=== PATIENT | female | born 2000 | race Hispanic/Latino ===

== ENCOUNTER 2020-08-19 17:44 | Emergency (ER) | payer MEDICAID ==
[2020-08-19 18:53] VITALS: TEMP 97.8
[2020-08-19] MEDS ORDERED: IPRATROPIUM/ALBUTEROL 3 ML VIAL NEB ONE (19:43)
--- NOTE | 2020-08-19 20:07 | RAD ---
EXAM DESCRIPTION: XR Chest, 2 Views CLINICAL HISTORY: cough and wheezing TECHNIQUE: Two views of the chest are submitted. COMPARISON: None available for comparison FINDINGS: Heart: The cardiothoracic silhouette is within normal limits. Lungs: No focal consolidation. Mediastinum: Unremarkable Pleura: No appreciable effusion. No pneumothorax. Bones: Intact Upper abdomen: Unremarkable Other: Bilateral nipple piercings. IMPRESSION: No acute disease. Electronically signed by: Cristina Torres MD 08/19/2020 8:05 PM [facility]
[2020-08-19 20:14] VITALS: O2SAT 98
--- NOTE | 2020-08-19 20:28 | ED.PDOC ---
History of Present Illness - General Chief Complaint: ENT Problem Stated Complaint: ear ache, cough, congestion Time Seen by Provider: 08/19/20 19:41 Source: patient, RN notes reviewed, Vital Signs reviewed Exam Limitations: no limitations - History of Present Illness Initial Comments: Patient is a 20-year-old female who presents with complaints of worsening sinus congestion, green nasal discharge, bilateral earaches that are worsened over the last 2 to 3 days right greater than left. They are throbbing in nature. Moderate in intensity. Constant. Worsening. Patient also has been coughing. She feels like she has significant postnasal drip. Patient has tried [id number] medications without improvement. Timing/Duration: constant, getting worse Severity: moderate Improving Factors: nothing Worsening Factors: other - smoking Associated Symptoms: cough Allergies/Adverse Reactions: Allergies NO KNOWN ALLERGY Allergy (Verified 08/19/20 19:06) Home Medications: Ambulatory Orders Amoxicillin & Pot Clavulanate [Augmentin Tab] 875 mg PO BID #14 tab 08/19/20 Review of Systems - Review of Systems Constitutional: States: no symptoms reported, see HPI. Denies: chills, fever, malaise, weakness EENTM: States: no symptoms reported. Denies: eye pain, blurred vision, double vision Respiratory: States: see HPI, cough, short of breath, wheezing Cardiology: States: no symptoms reported. Denies: chest pain, palpitations, syncope Gastrointestinal/Abdominal: States: no symptoms reported. Denies: abdominal pain, diarrhea, nausea, vomiting Genitourinary: States: no symptoms reported. Denies: dysuria, frequency Musculoskeletal: States: no symptoms reported. Denies: back pain, joint pain, neck pain Skin: States: no symptoms reported. Denies: change in color, rash Neurological: States: no symptoms reported. Denies: headache, tingling, tremors, weakness Endocrine: States: no symptoms reported. Denies: increased hunger, increased thirst, increased urine Hematologic/Lymphatic: States: no symptoms reported. Denies: blood clots, easy bleeding All other Systems: Reviewed and Negative Past Medical History (General) - Patient Medical History Hx Seizures: No Hx Stroke: No Hx Dementia: No Hx Asthma: No Hx of COPD: No Hx Cardiac Disorders: No Hx Congestive Heart Failure: No Hx Pacemaker: No Hx Hypertension: No Hx Thyroid Disease: No Hx Diabetes: No Hx Gastroesophageal Reflux: No Hx Renal Disease: No Hx Cancer: No Hx of HIV: No Hx Hepatitis C: No Hx MRSA: No Surgical History: no surgical history - Vaccination History Hx Tetanus, Diphtheria Vaccination: No Hx Influenza Vaccination: No Hx Pneumococcal Vaccination: No Immunizations Up to Date: No - Social History Hx Tobacco Use: No Hx Alcohol Use: Yes Family Medical History - Family History Mother Family History: No Known Physical Exam - Physical Exam General Appearance: Alert, Comfortable, Well Developed, Well Groomed, Well Hydrated, Well Nourished Eye Exam: bilateral normal Ears, Nose, Throat: hearing grossly normal, normal pharynx, abnormal TM (R) - copious fluid behind ear drum with bulging., abnormal TM (L) - scant fluid behind eardrum. 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 Progress - Progress Progress: Differential diagnosis: Otitis media, chronic sinusitis, pneumonia, viral URI among others. 08/19/20 20:30 Chest x-ray does not show any pneumonia. Physical exam shows patient with bilateral otitis media, right greater than left. Oropharynx shows significant postnasal drip. Patient improved with nebulizer. Will discharge home on antibiotics and steroids. I discussed this plan of care with the patient she voices understanding and agreement. José Reynolds M.D. #[id number] - Results/Orders Results/Orders: EXAM DESCRIPTION: XR Chest, 2 Views CLINICAL HISTORY: cough and wheezing TECHNIQUE: Two views of the chest are submitted. COMPARISON: None available for comparison FINDINGS: Heart: The cardiothoracic silhouette is within normal limits. Lungs: No focal consolidation. Mediastinum: Unremarkable Pleura: No appreciable effusion. No pneumothorax. Bones: Intact Upper abdomen: Unremarkable Other: Bilateral nipple piercings. IMPRESSION: No acute disease. Electronically signed by: Cristina Torres MD 08/19/2020 8:05 PM [facility] - EKG/XRAY/CT CT Ordered: No Departure - Departure Clinical Impression: Otitis media Qualifiers: Otitis media type: suppurative Chronicity: acute Laterality: bilateral Recurrence: non-recurrent Spontaneous tympanic membrane rupture: without spontaneous rupture Qualified Code(s): H66.003 - Acute suppurative otitis media without spontaneous rupture of ear drum, bilateral Eustachian tube dysfunction Qualifiers: Laterality: bilateral Qualified Code(s): H69.83 - Other specified disorders of Eustachian tube, bilateral Time of Disposition: 20:32 Disposition: Discharge to Home or Self Care Condition: Good Departure Forms: ED Discharge - Pt. Copy, Patient Portal Self Enrollment Instructions: DI for Ear Pain-Adult, Ear Infections (Otitis Media) in Children (DC), Eustachian Tube Problems (DC) Diet: resume usual diet Activity: increase activity as tolerated Referrals: Adan Don MD [Active Staff] - 1 Week Prescriptions: Amoxicillin & Pot Clavulanate [Augmentin Tab] 875 mg PO BID #14 tab Home Medications: Ambulatory Orders Amoxicillin & Pot Clavulanate [Augmentin Tab] 875 mg PO BID #14 tab 08/19/20
[2020-08-19 20:40] VITALS: BP 112/52
== END 2020-08-19 20:41 | disposition home or self-care (01) ==
LOC: ER 17:44
DX: H66.003 Acute suppurative otitis media without spontaneous rupture of ear drum, bilateral (principal); H69.83 Other specified disorders of Eustachian tube, bilateral; R06.2 Wheezing; R05 Cough; R09.82 Postnasal drip
CPT/HCPCS: 71046; 94640; J7620

== ENCOUNTER 2020-09-09 12:19 | Emergency (ER) | payer MEDICAID, OTHER ==
--- NOTE | 2020-09-09 14:09 | ED.PDOC ---
History of Present Illness - General Chief Complaint: Respiratory Problem Stated Complaint: cough, congestion, earache Time Seen by Provider: 09/09/20 13:57 Source: patient Exam Limitations: no limitations - History of Present Illness Initial Comments: The patient is a 20-year-old female presents emergency room secondary to ear pain primarily along with a runny nose off and on for the last couple of months. Pain is little bit worse in her right ear. She reports some decreased hearing. No definite fevers. Daughter has had similar symptoms. She does not currently have a sore throat but has in the past. No nausea or vomiting. Mild cough. Timing/Duration: unsure Severity: mild Improving Factors: nothing Worsening Factors: nothing Associated Symptoms: cough, malaise Allergies/Adverse Reactions: Allergies NO KNOWN ALLERGY Allergy (Verified 09/09/20 13:03) Home Medications: Ambulatory Orders Azithromycin 500 mg PO DAILY #5 tab 09/09/20 predniSONE [Prednisone] 20 mg PO DAILY #7 tab 09/09/20 Review of Systems - Review of Systems Constitutional: States: malaise EENTM: States: ear pain, nose congestion Respiratory: States: cough Cardiology: States: no symptoms reported Gastrointestinal/Abdominal: States: no symptoms reported Genitourinary: States: no symptoms reported Musculoskeletal: States: no symptoms reported Skin: States: no symptoms reported Neurological: States: no symptoms reported Endocrine: States: no symptoms reported All other Systems: No Change from Baseline Past Medical History (General) - Patient Medical History Hx Seizures: No Hx Stroke: No Hx Dementia: No Hx Asthma: No Hx of COPD: No Hx Cardiac Disorders: No Hx Congestive Heart Failure: No Hx Pacemaker: No Hx Hypertension: No Hx Thyroid Disease: No Hx Diabetes: No Hx Gastroesophageal Reflux: No Hx Renal Disease: No Hx Cancer: No Hx of HIV: No Hx Hepatitis C: No Hx MRSA: No - Vaccination History Hx Tetanus, Diphtheria Vaccination: No Hx Influenza Vaccination: No Hx Pneumococcal Vaccination: No - Social History Hx Tobacco Use: Yes Hx Alcohol Use: Yes Family Medical History - Family History Mother Family History: No Known Physical Exam - Physical Exam General Appearance: Alert, Comfortable, No apparent distress Eye Exam: bilateral normal Ears, Nose, Throat: hearing grossly normal, normal pharynx, nasal congestion, other - Significant amount of serous fluid behind bilateral tympanic membranes. Minimal erythema. 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 The patient has bilateral serous otitis media. She will be written for prednisone 20 mg daily for the next week. She is to take this in the morning. She will also be written for azithromycin for the next 5 days to help prevent infection in the ears, as well as for the possibility that she may have undetected strep as her daughter did test positive today as well. The patient can also picker packer and take Zyrtec once to twice daily for the next couple of weeks. She can also use [id number] Flonase 1 spray per nostril twice daily to help open up the ears. ER warnings are given for any significant worsening. [email or web address] will 747 - Results/Orders Results/Orders: Rapid strep was negative. - EKG/XRAY/CT CT Ordered: No Departure - Departure Clinical Impression: Serous otitis media Qualifiers: Chronicity: acute Laterality: bilateral Recurrence: non-recurrent Qualified Code(s): H65.03 - Acute serous otitis media, bilateral Disposition: Discharge to Home or Self Care Condition: Fair Departure Forms: ED Discharge - Pt. Copy, Patient Portal Self Enrollment Diet: regular diet Activity: increase activity as tolerated Prescriptions: Azithromycin 500 mg PO DAILY #5 tab predniSONE [Prednisone] 20 mg PO DAILY #7 tab Home Medications: Ambulatory Orders Azithromycin 500 mg PO DAILY #5 tab 09/09/20 predniSONE [Prednisone] 20 mg PO DAILY #7 tab 09/09/20 Additional Instructions: The patient is a 20-year-old female presented emergency room secondary to ear pain and a runny nose. The patient has bilateral serous otitis media. She will be written for prednisone 20 mg daily for the next week. She is to take this in the morning. She will also be written for azithromycin for the next 5 days to help prevent infection in the ears, as well as for the possibility that she may have undetected strep as her daughter did test positive today as well. The patient can also picker packer and take Zyrtec once to twice daily for the next couple of weeks. She can also use [id number] Flonase 1 spray per nostril twice daily to help open up the ears. ER warnings are given for any significant worsening.
[2020-09-09 14:35] VITALS: BP 117/72; TEMP 97.8; O2SAT 97
== END 2020-09-09 14:20 | disposition home or self-care (01) ==
LOC: ER 12:19
DX: H65.03 Acute serous otitis media, bilateral (principal); Z87.891 Personal history of nicotine dependence